=== PATIENT | male | born 1985 | race Caucasian/White ===

== ENCOUNTER 2017-03-08 12:45 | Inpatient (IN) | payer OTHER ==
[2017-03-08 15:55] VITALS: BMI 29.7
--- NOTE | 2017-03-08 20:35 | HP ---
CIWA Score - CIWA Score Nausea/Vomitin (vomiting x 4) Muscle Tremors: 4-Moderate,w/Arms Extend Anxiety: 4-Mod. Anxious/Guarded Agitation: 3 Paroxysmal Sweats: No Perspiration Orientation: 0-Oriented Tacttile Disturbances: 0-None Auditory Disturbances: 0-None Visual Disturbances: 0-None Headache: 3-Moderate CIWA-Ar Total Score: 17 Admission ROS S - HPI Chief Complaint: Alcohol withdrawal symptoms Allergies/Adverse Reactions: Allergies Allergy/AdvReac Type Severity Reaction Status Date / Time No Known Allergies Allergy Verified 03/08/17 17:16 History of Present Illness: 31 years old male with a long history of alcohol dependence is admitted to detox. Patient has been in previous detox and reports 2 months of sobriety. He has medical history of seizure, GERD and depression. Patient has a history of suicide attempt but denies suicidal ideation at this time. Exam Limitations: No Limitations - Ebola screening Have you traveled outside of the country in the last 21 days: No Have you had contact with anyone from an Ebola affected area: No Have you been sick,other than usual withdrawal symptoms: No Do you have a fever: No - Review of Systems Constitutional: Chills, Loss of Appetite, Malaise, Night Sweats, Changes in sleep EENT: reports: Blurred Vision, Nose Congestion, Sinus Pressure Respiratory: reports: No Symptoms reported Cardiac: reports: No Symptoms Reported GI: reports: Diarrhea (x 2), Nausea, Poor Appetite, Poor Fluid Intake, Vomiting (x 4), Abdominal cramping : reports: No Symptoms Reported Musculoskeletal: reports: Back Pain, Muscle Pain, Muscle Weakness Integumentary: reports: Flushing Endocrine: reports: No Symptoms Reported Hematology: reports: No Symptoms Reported Psychiatric: reports: Orientated x3, Agitated, Anxious, Depressed Other Systems: Reviewed and Negative Patient History - Patient Medical History Hx Anemia: No Hx Asthma: No Hx Chronic Obstructive Pulmonary Disease (COPD): No Hx Cancer: No Hx Cardiac Disorders: No Hx Congestive Heart Failure: No Hx Hypertension: No Hx Hypercholesterolemia: No Hx Pacemaker: No HX Cerebrovascular Accident: No Hx Seizures: Yes Hx Dementia: No Hx Diabetes: No Hx Gastrointestinal Disorders: Yes (GERD) Hx Liver Disease: No Hx Genitourinary Disorders: No Hx Sexually Transmitted Disorders: No Hx Renal Disease (ESRD): No Hx Thyroid Disease: No Hx Human Immunodeficiency Virus (HIV): No (Negative 2017) Hx Hepatitis C: No Hx Depression: Yes Hx Suicide Attempt: Yes (overdose,cutting left wrist. Denies suicidal ideation today) Hx Bipolar Disorder: Yes (hospitalized) Hx Schizophrenia: No - Patient Surgical History Past Surgical History: No Hx Neurologic Surgery: No Hx Cataract Extraction: No Hx Cardiac Surgery: No Hx Lung Surgery: No Hx Abdominal Surgery: No Hx Appendectomy: No Hx Cholecystectomy: No Hx Genitourinary Surgery: No Hx Section: No Hx Orthopedic Surgery: No Anesthesia Reaction: No - PPD History Previous Implant?: Yes Implanted On Prior [facility] Admission?: Yes Results: SIGNED OUT AMA PPD to be Administered?: Yes - Reproductive History Patient is a Female of Child Bearing Age (11 -55 yrs old): No (MALE) - Smoking Cessation Smoking history: Current every day smoker Have you smoked in the past 12 months: Yes Aproximately how many cigarettes per day: 20 Cigars Per Day: 0 Hx Chewing Tobacco Use: No Initiated information on smoking cessation: No 'Breaking Loose' booklet given: 03/08/17 - Substances Abused Alcohol Route: Oral Frequency: Daily Amount used: beer- 15- 24oz Age of first use: 23 Date of Last Use: 03/08/17 Family Disease History - Family Disease History Family Disease History: Heart Disease: Mother (Stroke), Other: Mother Admission Physical Exam S - Vital Signs Vital Signs: Vital Signs - 24 hr 03/08/17 15:53 Temperature 98.5 F Pulse Rate 96 H Respiratory 20 Rate Blood Pressure 148/95 - Physical General Appearance: Yes: Moderate Distress, Tremorous, Irritable, Sweating, Anxious HEENTM: Yes: EOMI, Normal Voice, PRUDENCIO Respiratory: Yes: Lungs Clear, Normal Breath Sounds, No Respiratory Distress Neck: Yes: Supple Breast: Yes: Breast Exam Deferred Cardiology: Yes: Regular Rhythm, Regular Rate, S1, S2 Abdominal: Yes: Normal Bowel Sounds, Soft Genitourinary: Yes: Within Normal Limits Back: Yes: Within Normal Limits Musculoskeletal: Yes: Within Normal Limits Extremities: Yes: Tremors Neurological: Yes: Alert, Normal Mood/Affect Integumentary: Yes: Dry, Warm Lymphatic: Yes: Within Normal Limits - Diagnostic (1) Alcohol dependence with uncomplicated withdrawal Current Visit: Yes Status: Chronic (2) Diarrhea Current Visit: Yes Status: Chronic (3) Nicotine dependence Current Visit: Yes Status: Chronic (4) Seizure Current Visit: Yes Status: Chronic Cleared for Admission [facility] - Detox or Rehab [facility] Level of Care: Medically Managed Detox Regimen/Protocol: Librium [facility] Breath Alcohol Content Breath Alcohol Content: 0.087 Urine Drug Screen - Results Drug Screen Negative: Yes
[2017-03-08] MEDS ORDERED: guaiFENesin/D-METHORPHAN HB 10 ML UNIT-DOSE CUPS PO PRN (20:46)
[2017-03-08] MEDS ORDERED: ACETAMINOPHEN 325 MG TABLET (FP) PO PRN (20:46)
[2017-03-08] MEDS ORDERED: LOPERAMIDE HCL 2 MG CAPSULE PO PRN (20:46)
[2017-03-08] MEDS ORDERED: chlordiazePOXIDE HCL 25 MG CAPSULE PO PRN (20:46)
[2017-03-08] MEDS ORDERED: MENTHOL/PHENOL 1 EACH UD MM PRN (20:46)
[2017-03-08] MEDS ORDERED: P-EPHED 60MG/TRIPROLIDI 2.5MG TABLET PO PRN (20:46)
[2017-03-08] MEDS ORDERED: MAGNESIUM CITRATE 300 ML BOTTLE PO PRN (20:46)
[2017-03-08] MEDS ORDERED: MAG HYDROX/AL HYDROX/SIMETH 30 ML UNIT-DOSE CUP PO PRN (20:46)
[2017-03-08] MEDS ORDERED: IBUPROFEN 400 MG TABLET (FP) PO PRN (20:46)
[2017-03-08] MEDS ORDERED: MAGNESIUM HYDROX 2400MG/30ML ORAL SUSPENSION 30 ML CUP PO PRN (20:46)
[2017-03-08] MEDS: THIAMINE HCL 100 MG TABLET (FP) PO SCH (21:42)
[2017-03-08] MEDS: chlordiazePOXIDE HCL 25 MG CAPSULE PO SCH (22:00)
[2017-03-08] MEDS: NICOTINE POLACRILEX 2 MG GUM BC PRN (22:48)
[2017-03-09 00:02] LABS: URINE APPEARANCE CLEAR; URINE BILIRUBIN NEGATIVE (NEGATIVE); URINE BLOOD NEGATIVE (NEGATIVE); URINE COLOR LTYELLOW; URINE GLUCOSE (UA) NEGATIVE (NEGATIVE); URINE KETONE NEGATIVE (NEGATIVE); URINE LEUK ESTERASE NEGATIVE (NEGATIVE); URINE NITRITE NEGATIVE (NEGATIVE); URINE PROTEIN NEGATIVE (NEGATIVE); URINE UROBILINOGEN NEGATIVE mg/dL (0.2-1.0)
[2017-03-09] MEDS ORDERED: hydrOXYzine PAMOATE 50 MG CAPSULE (FP) PO ONE (00:11)
[2017-03-09] MEDS: chlordiazePOXIDE HCL 25 MG CAPSULE PO SCH ×4 (05:48→22:14)
--- NOTE | 2017-03-09 10:06 | EKG ---
Test Reason : Blood Pressure : / mmHG Vent. Rate : 098 BPM Atrial Rate : 098 BPM P-R Int : 150 ms QRS Dur : 090 ms QT Int : 370 ms P-R-T Axes : 063 069 064 degrees QTc Int : 472 ms NORMAL SINUS RHYTHM NONSPECIFIC ST ABNORMALITY ABNORMAL ECG WHEN COMPARED WITH ECG OF 08-MAR-2017 21:53, NO SIGNIFICANT CHANGE WAS FOUND Confirmed by ANUJ SANZ MD ([id number]) on 03/09/2017 10:06:27 AM Referred By: Confirmed By:ANUJ SANZ MD
[2017-03-09] MEDS: NICOTINE 14 MG/24 HOURS TOPICAL PATCH TD SCH (10:18)
[2017-03-09] MEDS: PRENATAL VITAMINS W/ FOLIC ACID TABLET (FP) PO SCH (10:18)
[2017-03-09] MEDS: NICOTINE POLACRILEX 2 MG GUM BC PRN ×2 (10:21→17:58)
--- NOTE | 2017-03-09 10:23 | EKG ---
Test Reason : Blood Pressure : / mmHG Vent. Rate : 066 BPM Atrial Rate : 066 BPM P-R Int : 174 ms QRS Dur : 096 ms QT Int : 440 ms P-R-T Axes : 058 056 056 degrees QTc Int : 461 ms SINUS RHYTHM WITH OCCASIONAL PREMATURE VENTRICULAR COMPLEXES OTHERWISE NORMAL ECG WHEN COMPARED WITH ECG OF 08-MAR-2017 21:54, PREMATURE VENTRICULAR COMPLEXES ARE NOW PRESENT VENT. RATE HAS DECREASED BY 32 BPM Confirmed by UMU GRIJALVA, ANUJ ([id number]) on 03/09/2017 10:23:14 AM Referred By: Confirmed By:ANUJ SANZ MD
--- NOTE | 2017-03-09 13:16 | PN ---
[facility] CIWA - CIWA Score Nausea/Vomitin-No Nausea/No Vomiting Muscle Tremors: 4-Moderate,w/Arms Extend Anxiety: 4-Mod. Anxious/Guarded Agitation: 2 Paroxysmal Sweats: 3 Orientation: 0-Oriented Tacttile Disturbances: 2-Mild Itch/Numbness/Burn Auditory Disturbances: 2-Mild Harshness/Frighten Visual Disturbances: 0-None Headache: 0-None Present CIWA-Ar Total Score: 17 BHS Progress Note (SOAP) Subjective: Tremors, Anxious, Sweating, Diarrhea, Interrupted Sleep. Objective: PT. A & O X 3, OBSERVED AMBULATING ON UNIT. NO ACUTE DISTRESS. 03/09/17 13:17 Vital Signs Temperature 96.9 F L 03/09/17 12:59 Pulse Rate 79 03/09/17 12:59 Respiratory Rate 19 03/09/17 12:59 Blood Pressure 143/88 03/09/17 12:59 O2 Sat by Pulse Oximetry (%) Laboratory Tests 03/08/17 22:00 Urine Color Ltyellow Urine Appearance Clear Urine pH 6.0 Ur Specific [place] 1.004 Urine Protein Negative Urine Glucose (UA) Negative Urine Ketones Negative Urine Blood Negative Urine Nitrite Negative Urine Bilirubin Negative Urine Urobilinogen Negative Ur Leukocyte Esterase Negative UA RESULTS NOTED. CBC, CMP, RPR RESULTS NOT YET OBTAINED. 03/09/17 13:19 Assessment: 03/09/17 13:19 WITHDRAWAL SYMPTOMS. Plan: CONTINUE DETOX. INCREASE DAILY PO FLUID INTAKE.
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
[2017-03-09] MEDS: hydrOXYzine PAMOATE 25 MG CAPSULE (FP) PO PRN (17:58)
[2017-03-09] MEDS: THIAMINE HCL 100 MG TABLET (FP) PO SCH (22:13)
[2017-03-09] MEDS: ZOLPIDEM TARTRATE 10 MG TABLET (PARK CARE ONLY) PO PRN (22:14)
[2017-03-10] MEDS: chlordiazePOXIDE HCL 25 MG CAPSULE PO SCH ×3 (05:19→17:30)
[2017-03-10] MEDS: hydrOXYzine PAMOATE 25 MG CAPSULE (FP) PO PRN ×3 (05:20→18:52)
[2017-03-10 10:07] LABS: BASO % 0.8 % (0-2.0); HEMATOCRIT 43.5 % (35.4-49); LYMPH % 42.1 % (8-40); MCH 30.4 pg (25.7-33.7); MCHC 32.2 g/dl (32.0-35.9); MEAN CELL VOLUME 94.6 fl (80-96); MEAN PLT VOLUME 8.3 fl (7.5-11.1); MONO % 8.6 % (3.8-10.2); NEUT % 45.5 % (42.8-82.8); PLATELET COUNT 175 K/MM3 (134-434); RDW 13.8 % (11.9-15.9); WHITE BLOOD COUNT 5.4 K/mm3 (4.0-10.0)
[2017-03-10 10:09] LABS: ALBUMIN 3.2 g/dl (3.4-5.0); ALK PHOS 110 U/L (45-117); ANION GAP 6 (8-16); BILIRUBIN,TOTAL 0.4 mg/dL (0.2-1.0); BLOOD UREA NITROGEN 16 mg/dL (7-18); CALCIUM 8.3 mg/dL (8.5-10.1); CHLORIDE 105 mmol/L (98-107); CO2 31 mmol/L (21-32); CREATININE 0.8 mg/dL (0.7-1.3); GLUCOSE,RANDOM 92 mg/dL (74-106); POTASSIUM 4.5 mmol/L (3.5-5.1); SGOT/AST 57 U/L (15-37); SGPT/ALT 84 U/L (12-78); SODIUM 142 mmol/L (136-145); TOT PROT 6.5 g/dl (6.4-8.2)
[2017-03-10] MEDS: PRENATAL VITAMINS W/ FOLIC ACID TABLET (FP) PO SCH (10:42)
[2017-03-10] MEDS: NICOTINE 14 MG/24 HOURS TOPICAL PATCH TD SCH (10:42)
[2017-03-10] MEDS: NICOTINE POLACRILEX 2 MG GUM BC PRN ×3 (11:19→21:53)
--- NOTE | 2017-03-10 13:17 | PN ---
[facility] CIWA - CIWA Score Nausea/Vomitin-No Nausea/No Vomiting Muscle Tremors: 2 Anxiety: 4-Mod. Anxious/Guarded Agitation: 3 Paroxysmal Sweats: 3 Orientation: 0-Oriented Tacttile Disturbances: 2-Mild Itch/Numbness/Burn Auditory Disturbances: 0-None Visual Disturbances: 2-Mild Sensitivity Headache: 0-None Present CIWA-Ar Total Score: 16 S Progress Note (SOAP) Subjective: Anxious, Sweating, Stomach Cramping, Interrupted Sleep. Objective: PT. A & O X 3, OBSERVED AMBULATING ON UNIT. NO ACUTE DISTRESS. 03/10/17 13:15 Vital Signs Temperature 96.4 F L 03/10/17 10:17 Pulse Rate 98 H 03/10/17 10:17 Respiratory Rate 18 03/10/17 10:17 Blood Pressure 145/98 03/10/17 10:17 O2 Sat by Pulse Oximetry (%) Laboratory Tests 03/08/17 03/10/17 03/10/17 22:00 07:00 07:00 WBC 5.4 RBC 4.60 Hgb 14.0 Hct 43.5 MCV 94.6 MCH 30.4 MCHC 32.2 RDW 13.8 Plt Count 175 MPV 8.3 Neutrophils % 45.5 D Lymphocytes % 42.1 H D Monocytes % 8.6 Eosinophils % 3.0 D Basophils % 0.8 Sodium Potassium Chloride Carbon Dioxide Anion Gap BUN Creatinine Creat Clearance w eGFR Random Glucose Calcium Total Bilirubin AST ALT Alkaline Phosphatase Total Protein Albumin Urine Color Ltyellow Urine Appearance Clear Urine pH 6.0 Ur Specific [place] 1.004 Urine Protein Negative Urine Glucose (UA) Negative Urine Ketones Negative Urine Blood Negative Urine Nitrite Negative Urine Bilirubin Negative Urine Urobilinogen Negative Ur Leukocyte Esterase Negative RPR Titer HIV 1&2 Antibody Screen Negative HIV P24 Antigen Negative 03/10/17 03/10/17 07:00 07:00 WBC RBC Hgb Hct MCV MCH MCHC RDW Plt Count MPV Neutrophils % Lymphocytes % Monocytes % Eosinophils % Basophils % Sodium 142 Potassium 4.5 Chloride 105 Carbon Dioxide 31 Anion Gap 6 L BUN 16 D Creatinine 0.8 Creat Clearance w eGFR > 60 Random Glucose 92 Calcium 8.3 L Total Bilirubin 0.4 D AST 57 H D ALT 84 H D Alkaline Phosphatase 110 Total Protein 6.5 Albumin 3.2 L Urine Color Urine Appearance Urine pH Ur Specific [place] Urine Protein Urine Glucose (UA) Urine Ketones Urine Blood Urine Nitrite Urine Bilirubin Urine Urobilinogen Ur Leukocyte Esterase RPR Titer Nonreactive HIV 1&2 Antibody Screen HIV P24 Antigen LABS NOTED. HCV AB RESULT PENDING. 03/10/17 13:16 Assessment: 03/10/17 13:15 WITHDRAWAL SYMPTOMS. Plan: CONTINUE DETOX.
[2017-03-10] MEDS: ZOLPIDEM TARTRATE 10 MG TABLET (PARK CARE ONLY) PO PRN (21:52)
[2017-03-10] MEDS: THIAMINE HCL 100 MG TABLET (FP) PO SCH (21:53)
[2017-03-10] MEDS: chlordiazePOXIDE 5 MG CAPSULE PO SCH (22:59)
[2017-03-11] MEDS: chlordiazePOXIDE 5 MG CAPSULE PO SCH (06:02)
[2017-03-11] MEDS: hydrOXYzine PAMOATE 25 MG CAPSULE (FP) PO PRN (06:04)
[2017-03-11] MEDS: NICOTINE POLACRILEX 2 MG GUM BC PRN (07:19)
[2017-03-11 09:44] VITALS: BP 133/88; PULSE 76; TEMP 96.4
--- NOTE | 2017-03-11 11:50 | DS ---
[facility] Detox Discharge Summary Admission Date: 03/08/17 Discharge Date: 03/11/17 - History Present History: Alcohol Dependence Additional Comments: PATIENT DOES NOT WISH TO STAY TO COMPLETE DETOX REGIMEN. RISKS OF LEAVING DETOX UNIT PRIOR TO COMPLETION OF DETOX REGIMEN EXPLAINED TO PATIENT. PATIENT ADVISED TO GO IMMEDIATELY TO NEAREST ER SHOULD ANY INTOLERABLE DETOX SYMPTOMS DEVELOP AT ANY TIME. PATIENT LEFT DETOX UNIT IN STABLE MEDICAL CONDITION. Pertinent Past History: History of Seizures, Depression, Diarrhea, Bipolar Disorder. - Physical Exam Results Vital Signs: Vital Signs Temperature 96.4 F L 03/11/17 09:44 Pulse Rate 76 03/11/17 09:44 Respiratory Rate 20 03/11/17 09:44 Blood Pressure 133/88 03/11/17 09:44 O2 Sat by Pulse Oximetry (%) Pertinent Admission Physical Exam Findings: WITHDRAWAL SYMPTOMS. Laboratory Tests 03/08/17 03/10/17 03/10/17 22:00 07:00 07:00 WBC RBC Hgb Hct MCV MCH MCHC RDW Plt Count MPV Neutrophils % Lymphocytes % Monocytes % Eosinophils % Basophils % Sodium Potassium Chloride Carbon Dioxide Anion Gap BUN Creatinine Creat Clearance w eGFR Random Glucose Calcium Total Bilirubin AST ALT Alkaline Phosphatase Total Protein Albumin Urine Color Ltyellow Urine Appearance Clear Urine pH 6.0 Ur Specific [place] 1.004 Urine Protein Negative Urine Glucose (UA) Negative Urine Ketones Negative Urine Blood Negative Urine Nitrite Negative Urine Bilirubin Negative Urine Urobilinogen Negative Ur Leukocyte Esterase Negative RPR Titer Hepatitis C Antibody <0.1 HIV 1&2 Antibody Screen Negative HIV P24 Antigen Negative 03/10/17 03/10/17 03/10/17 07:00 07:00 07:00 WBC 5.4 RBC 4.60 Hgb 14.0 Hct 43.5 MCV 94.6 MCH 30.4 MCHC 32.2 RDW 13.8 Plt Count 175 MPV 8.3 Neutrophils % 45.5 D Lymphocytes % 42.1 H D Monocytes % 8.6 Eosinophils % 3.0 D Basophils % 0.8 Sodium 142 Potassium 4.5 Chloride 105 Carbon Dioxide 31 Anion Gap 6 L BUN 16 D Creatinine 0.8 Creat Clearance w eGFR > 60 Random Glucose 92 Calcium 8.3 L Total Bilirubin 0.4 D AST 57 H D ALT 84 H D Alkaline Phosphatase 110 Total Protein 6.5 Albumin 3.2 L Urine Color Urine Appearance Urine pH Ur Specific [place] Urine Protein Urine Glucose (UA) Urine Ketones Urine Blood Urine Nitrite Urine Bilirubin Urine Urobilinogen Ur Leukocyte Esterase RPR Titer Nonreactive Hepatitis C Antibody HIV 1&2 Antibody Screen HIV P24 Antigen LABS NOTED. - Treatment Hospital Course: Detoxed Safely - Medication Discharge Medications: Ambulatory Orders Trazodone HCl 100 mg PO HS #30 tablet 01/22/17 - Diagnosis (1) Alcohol dependence with uncomplicated withdrawal Status: Acute (2) Diarrhea Status: Chronic Qualifiers: Diarrhea type: unspecified type Qualified Code(s): R19.7 - Diarrhea, unspecified (3) Nicotine dependence Status: Acute Qualifiers: Nicotine product type: cigarettes Substance use status: uncomplicated Qualified Code(s): F17.210 - Nicotine dependence, cigarettes, uncomplicated (4) Seizure Status: Chronic - AMA Did Patient Leave Against Medical Advice: Yes (PATIENT DID NOT WISH TO STAY TO COMPLETE DETOX REGIMEN.)
[2017-03-11] MEDS ORDERED: chlordiazePOXIDE HCL 10 MG CAPSULE PO SCH (23:00)
== END 2017-03-11 10:49 | disposition left against medical advice (07) | DRG 770 ==
LOC: YASAS 12:45 → Y3N 17:58
PROVIDERS: ADMIT Internal Medicine; ATTEND Internal Medicine
PROC: HZ2ZZZZ Detoxification Services for Substance Abuse Treatment (ICD-10-PCS; principal; 2017-03-08)
DX: F10.230 Alcohol dependence with withdrawal, uncomplicated (principal); F17.210 Nicotine dependence, cigarettes, uncomplicated; F31.9 Bipolar disorder, unspecified; F19.24 Other psychoactive substance dependence with psychoactive substance-induced mood disorder; G47.00 Insomnia, unspecified; K21.9 Gastro-esophageal reflux disease without esophagitis; R19.7 Diarrhea, unspecified; Z91.5 Personal history of self-harm
CPT/HCPCS: 36415; 80053; 81003; 85025; 86593; 86803; 87389; 93005; 93010

== ENCOUNTER 2018-01-31 04:23 | Emergency (ER) | payer OTHER ==
[2018-01-31 04:40] VITALS: BMI 27.3
--- NOTE | 2018-01-31 04:59 | PDOC ---
History of Present Illness - General Chief Complaint: Substance Abuse Stated Complaint: SUBSTANCE ABUSE Time Seen by Provider: 01/31/18 04:59 History Source: Patient - History of Present Illness Initial Comments: 01/31/18 05:22 32 year old male male bib friends as per friend patient was vomiting and turning blue after snorting cocaine and heroin. patient is now awake with intermittent somonolence. patient reports he is an alcoholic and doesn't often do heroin or cocaine. friend denies head injury . normocephalic. denies abdominal pain, fever/ chills. patient denies IVDA 01/31/18 06:18 Past History - Past Medical History Allergies/Adverse Reactions: Allergies Allergy/AdvReac Type Severity Reaction Status Date / Time No Known Allergies Allergy Verified 01/31/18 04:40 Home Medications: Ambulatory Orders NK [No Known Home Medication] 12/22/17 Anemia: No Asthma: No Cancer: No Cardiac Disorders: No CVA: No COPD: No CHF: No Dementia: No Diabetes: No GI Disorders: No Disorders: No HTN: No Hypercholesterolemia: No Kidney Stones: No Liver Disease: No Psychiatric Problems: Yes (BIPOLAR,DEPRESSION) Seizures: No Thyroid Disease: No - Surgical History Abdominal Surgery: No Appendectomy: No Cardiac Surgery: No Cholecystectomy: No Lung Surgery: No Neurologic Surgery: No Orthopedic Surgery: No - Reproductive History Testicular Surgery: No - Suicide/Smoking/Psychosocial Hx Smoking History: Current every day smoker Have you smoked in the past 12 months: Yes Number of Cigarettes Smoked Daily: 20 Cigars Per Day: 0 Information on smoking cessation initiated: No 'Breaking Loose' booklet given: 03/08/17 Hx Alcohol Use: Yes Drug/Substance Use Hx: Yes (Cocaine, heroin) Substance Use Type: Alcohol, Cocaine, Heroin, Marijuana, Opiates Hx Substance Use Treatment: Yes Review of Systems - Review of Systems Able to Perform ROS?: Yes Is the patient limited Russian proficient: No ABD/GI: Yes: Nausea, Vomiting *Physical Exam - Vital Signs Last Vital Signs Temp Pulse Resp BP Pulse Ox 98.1 F 110 H 19 140/96 92 L 01/31/18 04:23 01/31/18 04:23 01/31/18 04:23 01/31/18 04:23 01/31/18 04:23 - Physical Exam General Appearance: Yes: Appropriately Dressed HEENT: positive: Other (pupils pinpoint b/l) Respiratory/Chest: positive: Lungs Clear, Normal Breath Sounds Cardiovascular: positive: Regular Rate, Tachycardia Gastrointestinal/Abdominal: positive: Normal Bowel Sounds, Soft Neurologic: positive: Alert, Depressed Affect Moderate Sedation - Procedure Monitoring Vital Signs: Procedure Monitoring Vital Signs Temperature 98.1 F 01/31/18 04:23 Pulse Rate 110 H 01/31/18 04:23 Respiratory Rate 19 01/31/18 04:23 Blood Pressure 140/96 01/31/18 04:23 O2 Sat by Pulse Oximetry (%) 92 L 01/31/18 04:23 ED Treatment Course - LABORATORY CBC & Chemistry Diagram: 01/31/18 05:15 01/31/18 05:15 Medical Decision Making - Medical Decision Making 01/31/18 06:26 A; polysubstance abuse/ overdose. aspiration? P: labs chest xray 01/31/18 07:04 patient alert awake. IV removed. patient no slurred speech. patient walked out of the ER *DC/Admit/Observation/Transfer Diagnosis at time of Disposition: Polysubstance (including opioids) dependence with physiological dependence - Discharge Dispostion Condition at time of disposition: Fair - Referrals Referrals: Cullen Li MD [Primary Care Provider] - - Patient Instructions - Post Discharge Activity
[2018-01-31] MEDS ORDERED: SODIUM CHLORIDE 1,000 ML IV STA (05:00)
[2018-01-31 05:24] LABS: BASO % 0.3 % (0-2.0); HEMATOCRIT 42.9 % (35.4-49); HEMOGLOBIN 14.1 GM/dL (11.7-16.9); LYMPH % 5.2 % (8-40); MCHC 32.9 g/dl (32.0-35.9); MEAN CELL VOLUME 94.3 fl (80-96); MEAN PLT VOLUME 7.5 fl (7.5-11.1); MONO % 4.9 % (3.8-10.2); NEUT % 89.6 % (42.8-82.8); PLATELET COUNT 168 K/MM3 (134-434); RBC 4.54 M/mm3 (4.00-5.60); RDW 15.1 % (11.9-15.9); WHITE BLOOD COUNT 12.9 K/mm3 (4.0-10.0)
[2018-01-31 05:37] LABS: INR 0.93 (0.83-1.09)
[2018-01-31 05:52] LABS: ALBUMIN 4.3 g/dl (3.4-5.0); ALK PHOS 79 U/L (45-117); ANION GAP 7 MMOL/L (8-16); BILIRUBIN,TOTAL 0.2 mg/dL (0.2-1); BLOOD UREA NITROGEN 15 mg/dL (7-18); CALCIUM 8.6 mg/dL (8.5-10.1); CHLORIDE 104 mmol/L (98-107); CO2 28 mmol/L (21-32); CREATININE 0.9 mg/dL (0.55-1.3); GLUCOSE,RANDOM 157 mg/dL (74-106); POTASSIUM 4.6 mmol/L (3.5-5.1); SGOT/AST 54 U/L (15-37); SGPT/ALT 103 U/L (13-61); SODIUM 139 mmol/L (136-145); TOT PROT 8.1 g/dl (6.4-8.2)
[2018-01-31 07:22] VITALS: BP 129/77; PULSE 72; TEMP 99.2
--- NOTE | 2018-01-31 16:25 | EKG ---
Test Reason : Blood Pressure : / mmHG Vent. Rate : 090 BPM Atrial Rate : 090 BPM P-R Int : 158 ms QRS Dur : 098 ms QT Int : 374 ms P-R-T Axes : 054 022 048 degrees QTc Int : 457 ms NORMAL SINUS RHYTHM CANNOT RULE OUT ANTERIOR INFARCT , AGE UNDETERMINED ABNORMAL ECG Confirmed by MD TONY, MARY ([id number]) on 01/31/2018 4:24:56 PM Referred By: Confirmed By:MARY JIMENEZ MD
== END 2018-01-31 07:20 | disposition left against medical advice (07) ==
LOC: JER 04:23
PROC: 3E0337Z Introduction of Electrolytic and Water Balance Substance into Peripheral Vein, Percutaneous Approach (ICD-10-PCS; principal; 2018-01-31)
DX: F11.20 Opioid dependence, uncomplicated (principal); F17.210 Nicotine dependence, cigarettes, uncomplicated; F31.9 Bipolar disorder, unspecified
CPT/HCPCS: 36415; 71045-TC-FY; 80053; 80307; 84484; 85025; 85610; 93005; 93010; 99282-25; J7030

== ENCOUNTER 2018-03-30 09:44 | Inpatient (IN) | payer OTHER ==
[2018-03-30 10:35] VITALS: BMI 30.2
--- NOTE | 2018-03-30 11:10 | HP ---
CIWA Score Nausea/Vomitin Muscle Tremors: 3 Anxiety: 2 Agitation: 2 Paroxysmal Sweats: 1-Minimal Palms Moist Orientation: 0-Oriented Tacttile Disturbances: 1-Very Mild Itch/Numbness Auditory Disturbances: 1-Very Mild Visual Disturbances: 0-None Headache: 2-Mild CIWA-Ar Total Score: 15 - Admission Criteria OASAS Guidelines: Admission for Medically Managed Detox: Requires at least one of the followin. CIWA greater than 12 2. Seizures within the past 24 hours 3. Delirium tremens within the past 24 hours 4. Hallucinations within the past 24 hours 5. Acute intervention needed for co occurring medical disorder 6. Acute intervention needed for co occurring psychiatric disorder 7. Severe withdrawal that cannot be handled at a lower level of care (continued vomiting, continued diarrhea, abnormal vital signs) requiring intravenous medication and/or fluids 8. Patient presents the following: CIWA greater than 12 Admission Criteria Met: Admission criteria met Admission ROS [facility] - HPI Chief Complaint: i need help to stop drinking alcohol and marijuana Allergies/Adverse Reactions: Allergies Allergy/AdvReac Type Severity Reaction Status Date / Time No Known Allergies Allergy Verified 03/30/18 10:44 History of Present Illness: this 32 years old male with alcoho and marijuana dependence,seeking detox, withdrawal symptom,[facility] not completed multiple admissions in detox but keep relapsing seizure last 01/31 syncope nicotine dependence bipolar disorder n medication longest period of sobriety 2 months - Ebola screening Have you traveled outside of the country in the last 21 days: No Have you had contact with anyone from an Ebola affected area: No Have you been sick,other than usual withdrawal symptoms: No Do you have a fever: No - Review of Systems Constitutional: Loss of Appetite, Malaise, Night Sweats, Changes in sleep, Weakness EENT: reports: Tearing, Nose Congestion Respiratory: reports: No Symptoms reported Cardiac: reports: Palpitations GI: reports: Nausea, Vomiting, Abdominal cramping : reports: No Symptoms Reported Musculoskeletal: reports: Back Pain, Muscle Pain Integumentary: reports: Dryness Neuro: reports: Headache, Tremors Endocrine: reports: No Symptoms Reported Hematology: reports: No Symptoms Reported Psychiatric: reports: No Sypmtoms Reported, Judgement Intact, Mood/Affect Appropiate, Orientated x3 Other Systems: Reviewed and Negative Patient History - Patient Medical History Hx Anemia: No Hx Asthma: No Hx Chronic Obstructive Pulmonary Disease (COPD): No Hx Cancer: No Hx Cardiac Disorders: No Hx Congestive Heart Failure: No Hx Hypertension: No Hx Hypercholesterolemia: No Hx Pacemaker: No HX Cerebrovascular Accident: No Hx Seizures: Yes (alcohol related-last episode was in 01/2018) Hx Dementia: No Hx Diabetes: No Hx Gastrointestinal Disorders: No Hx Liver Disease: No Hx Genitourinary Disorders: No Hx Sexually Transmitted Disorders: No Hx Renal Disease (ESRD): No Hx Thyroid Disease: No Hx Human Immunodeficiency Virus (HIV): No (Negative 2015) Hx Hepatitis C: No Hx Depression: Yes Hx Suicide Attempt: No Hx Bipolar Disorder: Yes (hospitalized at age 25) Hx Schizophrenia: No Other Medical History: no suicidal,no homicidal - Patient Surgical History Past Surgical History: Yes Hx Neurologic Surgery: No Hx Cataract Extraction: No Hx Cardiac Surgery: No Hx Lung Surgery: No Hx Breast Surgery: No Hx Breast Biopsy: No Hx Abdominal Surgery: No Hx Appendectomy: No Hx Cholecystectomy: No Hx Genitourinary Surgery: No Hx Section: No Hx Orthopedic Surgery: Yes (right foot in 2010 compartment ) Anesthesia Reaction: No - PPD History Previous Implant?: Yes Implanted On Prior [facility] Admission?: Yes Date: 03/10/17 Results: 0 mm PPD to be Administered?: Yes - Smoking Cessation Smoking history: Current every day smoker Have you smoked in the past 12 months: Yes Aproximately how many cigarettes per day: 20 Cigars Per Day: 0 Hx Chewing Tobacco Use: No Initiated information on smoking cessation: Yes 'Breaking Loose' booklet given: 03/30/18 - Substance & Tx. History Hx Alcohol Use: Yes Hx Substance Use: Yes Substance Use Type: Alcohol Hx Substance Use Treatment: Yes ([facility] 01/31 not completed) - Substances Abused Alcohol-beer Route: Oral Frequency: Daily Amount used: 3-6 pks.of 24 ozs Age of first use: 24 Date of Last Use: 03/30/18 Marijuana/Hashish Route: Smoking Frequency: 1-3 times last 30 days Amount used: 10$ Age of first use: 22 Date of Last Use: 03/17/18 Family Disease History - Family Disease History Family Disease History: Heart Disease: Mother (Stroke), Other: Mother Admission Physical Exam BHS - Vital Signs Vital Signs: Vital Signs - 24 hr 03/30/18 10:19 Temperature 98.9 F Pulse Rate 125 H Respiratory 20 Rate Blood Pressure 161/113 H - Physical General Appearance: Yes: Moderate Distress, Tremorous, Irritable, Sweating, Anxious HEENTM: Yes: Normal ENT Inspection, PRUDENCIO, Pharynx Normal Respiratory: Yes: Lungs Clear, Normal Breath Sounds, No Respiratory Distress Neck: Yes: Within Normal Limits, Supple, Trachea in good position Breast: Yes: Within Normal Limits Cardiology: Yes: Within Normal Limits, Regular Rhythm, S1, S2, Tachycardia Abdominal: Yes: Within Normal Limits, Normal Bowel Sounds, Non Tender, Flat, Soft Genitourinary: Yes: Within Normal Limits Back: Yes: Muscle Spasm Musculoskeletal: Yes: full range of Motion, Back pain, Muscle Pain Extremities: Yes: Normal Range of Motion, Tremors Neurological: Yes: sterile tech II-XII NML intact, Fully Oriented, Alert, Motor Strength 5/5 Integumentary: Yes: Dry Lymphatic: Yes: Within Normal Limits - Diagnostic (1) Alcohol dependence with uncomplicated withdrawal Current Visit: No Status: Acute (2) Dehydration Current Visit: No Status: Acute (3) Nicotine dependence Current Visit: Yes Status: Acute Qualifiers: Nicotine product type: cigarettes Substance use status: uncomplicated Qualified Code(s): F17.210 - Nicotine dependence, cigarettes, uncomplicated (4) Syncope Current Visit: No Status: Acute (5) Bipolar disorder Current Visit: No Status: Chronic Comment: Self-report.Non-adherent to medications.Currently asymptomatic.Lost to follow-up since 2013. (6) Seizure Current Visit: No Status: Chronic (7) Alcohol dependence with uncomplicated intoxication Current Visit: Yes Status: Acute (8) Bipolar disorder Current Visit: No Status: Suspected Comment: Self reports. (9) Insomnia Current Visit: No Status: Acute Cleared for Admission S - Detox or Rehab [facility] Level of Care: Medically Managed Detox Regimen/Protocol: Librium [facility] Breath Alcohol Content Breath Alcohol Content: 0.137 Urine Drug Screen - Results Drug Screen Negative: Yes Inpatient Rehab Admission - Rehab Decision to Admit Inpatient rehab admission?: No
[2018-03-30] MEDS ORDERED: guaiFENesin/D-METHORPHAN HB 10 ML UNIT-DOSE CUPS PO PRN (11:22)
[2018-03-30] MEDS ORDERED: MENTHOL/PHENOL 1 EACH UD MM PRN (11:22)
[2018-03-30] MEDS ORDERED: P-EPHED 60MG/TRIPROLIDI 2.5MG TABLET PO PRN (11:22)
[2018-03-30] MEDS ORDERED: hydrOXYzine PAMOATE 50 MG CAPSULE (FP) PO PRN (11:22)
[2018-03-30] MEDS ORDERED: LOPERAMIDE HCL 2 MG CAPSULE PO PRN (11:22)
[2018-03-30] MEDS ORDERED: NICOTINE POLACRILEX 2 MG GUM BUC PRN (11:22)
[2018-03-30] MEDS ORDERED: MAG HYDROX/AL HYDROX/SIMETH 30 ML UNIT-DOSE CUP PO PRN (11:22)
[2018-03-30] MEDS ORDERED: MAGNESIUM HYDROX 2400MG/30ML ORAL SUSPENSION 30 ML CUP PO PRN (11:22)
[2018-03-30] MEDS ORDERED: ACETAMINOPHEN 325 MG TABLET (FP) PO PRN (11:22)
[2018-03-30] MEDS ORDERED: chlordiazePOXIDE HCL 25 MG CAPSULE PO PRN (11:22)
[2018-03-30] MEDS ORDERED: MAGNESIUM CITRATE 300 ML BOTTLE PO PRN (11:22)
[2018-03-30] MEDS ORDERED: cloNIDine HCL 0.1 MG TABLET PO ONE (12:00)
[2018-03-30] MEDS: NICOTINE 21 MG/24 HOURS TOPICAL PATCH TD SCH (13:12)
--- NOTE | 2018-03-30 15:46 | EKG ---
Test Reason : Blood Pressure : / mmHG Vent. Rate : 105 BPM Atrial Rate : 105 BPM P-R Int : 152 ms QRS Dur : 100 ms QT Int : 348 ms P-R-T Axes : 063 060 060 degrees QTc Int : 459 ms SINUS TACHYCARDIA WITH OCCASIONAL PREMATURE VENTRICULAR COMPLEXES AND FUSION COMPLEXES OTHERWISE NORMAL ECG WHEN COMPARED WITH ECG OF 31-JAN-2018 06:52, FUSION COMPLEXES ARE NOW PRESENT PREMATURE VENTRICULAR COMPLEXES ARE NOW PRESENT Confirmed by ALEXANDRE GRIJALVA, TERRIE ([id number]) on 03/30/2018 3:46:08 PM Referred By: Confirmed By:TERRIE SCHROEDER MD
--- NOTE | 2018-03-30 15:48 | PN ---
B[facility] Progress Note Note: nausea zofran 4 mg sl x 1
[2018-03-30] MEDS ORDERED: ONDANSETRON *ODT* 4 MG TABLET SL ONE (16:15)
[2018-03-30 17:23] LABS: URINE APPEARANCE CLEAR; URINE BILIRUBIN NEGATIVE (<2.0 mg/dL); URINE COLOR YELLOW; URINE GLUCOSE (UA) NEGATIVE (NEGATIVE); URINE KETONE NEGATIVE (NEGATIVE); URINE LEUK ESTERASE NEGATIVE (NEGATIVE); URINE NITRITE NEGATIVE (NEGATIVE); URINE PROTEIN 2+ (NEGATIVE); URINE UROBILINOGEN NEGATIVE mg/dL (0.2-1.0)
[2018-03-30] MEDS: chlordiazePOXIDE HCL 25 MG CAPSULE PO SCH ×2 (17:29→22:12)
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
[2018-03-30 18:05] LABS: EPI CELLS RARE /HPF (FEW); URINE HYALINE CAST 8 /lpf; URINE MUCUS RARE
[2018-03-30] MEDS: IBUPROFEN 400 MG TABLET (FP) PO PRN (20:42)
[2018-03-30] MEDS ORDERED: MELATONIN 5 MG TABLETS PO PRN (22:00)
[2018-03-30] MEDS ORDERED: THIAMINE HCL 100 MG TABLET (FP) PO SCH (22:00)
[2018-03-30] MEDS ORDERED: SUVOREXANT 10 MG TABLET PO PRN (22:00)
[2018-03-31] MEDS: chlordiazePOXIDE HCL 25 MG CAPSULE PO SCH ×2 (05:42→10:19)
[2018-03-31] MEDS: IBUPROFEN 400 MG TABLET (FP) PO PRN (05:42)
[2018-03-31] MEDS ORDERED: PRENATAL VITAMINS W/ FOLIC ACID TABLET (FP) PO SCH (10:00)
[2018-03-31] MEDS: NICOTINE 21 MG/24 HOURS TOPICAL PATCH TD SCH (10:19)
[2018-03-31 11:23] LABS: HEMATOCRIT 45.2 % (35.4-49); HEMOGLOBIN 15.4 GM/dL (11.7-16.9); MCH 32.3 pg (25.7-33.7); MCHC 34.1 g/dl (32.0-35.9); MEAN CELL VOLUME 94.9 fl (80-96); MEAN PLT VOLUME 8.5 fl (7.5-11.1); PLATELET COUNT 205 K/MM3 (134-434); RBC 4.77 M/mm3 (4.00-5.60); RDW 14.5 % (11.9-15.9); WHITE BLOOD COUNT 4.7 K/mm3 (4.0-10.0)
[2018-03-31] MEDS ORDERED: CYCLOBENZAPRINE HCL 10 MG TABLET (FP) PO ONE (11:23)
[2018-03-31] MEDS ORDERED: ONDANSETRON *ODT* 4 MG TABLET SL PRN (11:24)
[2018-03-31 12:24] LABS: ALBUMIN 4.3 g/dl (3.4-5.0); ALK PHOS 88 U/L (45-117); ANION GAP 12 MMOL/L (8-16); BILIRUBIN,TOTAL 0.4 mg/dL (0.2-1); BLOOD UREA NITROGEN 9 mg/dL (7-18); CALCIUM 8.9 mg/dL (8.5-10.1); CHLORIDE 103 mmol/L (98-107); CO2 23 mmol/L (21-32); CREATININE 0.7 mg/dL (0.55-1.3); GLUCOSE,RANDOM 87 mg/dL (74-106); POTASSIUM 4.3 mmol/L (3.5-5.1); SGOT/AST 202 U/L (15-37); SGPT/ALT 200 U/L (13-61); SODIUM 138 mmol/L (136-145); TOT PROT 8.3 g/dl (6.4-8.2)
--- NOTE | 2018-03-31 16:51 | PN ---
S CIWA - CIWA Score Nausea/Vomitin Muscle Tremors: None Anxiety: 4-Mod. Anxious/Guarded Agitation: 1-Slight > Activity Paroxysmal Sweats: 3 Orientation: 0-Oriented Tacttile Disturbances: 2-Mild Itch/Numbness/Burn Auditory Disturbances: 0-None Visual Disturbances: 1-Very Mild Sensitivity Headache: 0-None Present CIWA-Ar Total Score: 14 BHS Progress Note (SOAP) Subjective: Nausea, Sweating, Body Aches, Anxious, Diarrhea. Objective: PATIENT A & O X 3, OBSERVED AMBULATING ON UNIT. IN NO ACUTE DISTRESS. 03/31/18 16:47 Vital Signs Temperature 97.4 F L 03/31/18 13:36 Pulse Rate 95 H 03/31/18 16:00 Respiratory Rate 18 03/31/18 16:00 Blood Pressure 132/86 03/31/18 13:36 O2 Sat by Pulse Oximetry (%) Laboratory Tests 03/30/18 03/30/18 03/31/18 12:25 14:00 06:00 WBC 4.7 RBC 4.77 Hgb 15.4 Hct 45.2 MCV 94.9 MCH 32.3 MCHC 34.1 RDW 14.5 Plt Count 205 D MPV 8.5 D Sodium Potassium Chloride Carbon Dioxide Anion Gap BUN Creatinine Creat Clearance w eGFR Random Glucose Calcium Total Bilirubin AST ALT Alkaline Phosphatase Total Protein Albumin Urine Color Yellow Urine Appearance Clear Urine pH 5.0 Ur Specific [place] 1.017 Urine Protein 2+ H Urine Glucose (UA) Negative Urine Ketones Negative Urine Blood Negative Urine Nitrite Negative Urine Bilirubin Negative Urine Urobilinogen Negative Ur Leukocyte Esterase Negative Urine WBC (Auto) <1 Urine RBC (Auto) <1 Ur Epithelial Cells Rare Hyaline Casts 8 Urine Mucus Rare RPR Titer HIV 1&2 Antibody Screen Negative HIV P24 Antigen Negative 03/31/18 03/31/18 06:00 06:00 WBC RBC Hgb Hct MCV MCH MCHC RDW Plt Count MPV Sodium 138 Potassium 4.3 Chloride 103 Carbon Dioxide 23 Anion Gap 12 BUN 9 Creatinine 0.7 Creat Clearance w eGFR > 60 Random Glucose 87 Calcium 8.9 Total Bilirubin 0.4 AST 202 H ALT 200 H Alkaline Phosphatase 88 Total Protein 8.3 H Albumin 4.3 Urine Color Urine Appearance Urine pH Ur Specific [place] Urine Protein Urine Glucose (UA) Urine Ketones Urine Blood Urine Nitrite Urine Bilirubin Urine Urobilinogen Ur Leukocyte Esterase Urine WBC (Auto) Urine RBC (Auto) Ur Epithelial Cells Hyaline Casts Urine Mucus RPR Titer Nonreactive HIV 1&2 Antibody Screen HIV P24 Antigen LABS NOTED. Assessment: 03/31/18 16:47 WITHDRAWAL SYMPTOMS. Plan: CONTINUE DETOX. CLONIDINE, 0.1 MG PO BID FOR WITHDRAWAL SYMPTOMS. FLEXERIL, 10 MG PO BID FOR BODY ACHES. ZOFRAN, 0.4 MG PO SL PRN FOR NAUSEA. PRN IMMODIUM PO FOR DIARRHEA. INCREASE DAILY PO FLUID INTAKE. REPEAT AST, ALT TOMORROW AM FOR ELEVATED ADMISSION LEVELS.
[2018-03-31] MEDS ORDERED: chlordiazePOXIDE HCL 25 MG CAPSULE PO SCH (17:00)
[2018-03-31 17:39] VITALS: BP 142/90; PULSE 102; TEMP 99.1
[2018-03-31] MEDS ORDERED: CYCLOBENZAPRINE HCL 10 MG TABLET (FP) PO SCH (18:00)
[2018-03-31] MEDS ORDERED: cloNIDine HCL 0.1 MG TABLET PO SCH (22:00)
[2018-04-01] MEDS ORDERED: chlordiazePOXIDE 5 MG CAPSULE PO SCH (17:00)
[2018-04-02] MEDS ORDERED: chlordiazePOXIDE HCL 10 MG CAPSULE PO SCH (17:00)
== END 2018-03-31 16:41 | disposition left against medical advice (07) | DRG 770 ==
LOC: YASAS 09:44 → Y3N 11:47
PROVIDERS: ADMIT Surgery; ATTEND Surgery
PROC: HZ2ZZZZ Detoxification Services for Substance Abuse Treatment (ICD-10-PCS; principal; 2018-03-30)
DX: F10.230 Alcohol dependence with withdrawal, uncomplicated (principal); F10.220 Alcohol dependence with intoxication, uncomplicated; F17.210 Nicotine dependence, cigarettes, uncomplicated; F19.24 Other psychoactive substance dependence with psychoactive substance-induced mood disorder; F19.282 Other psychoactive substance dependence with psychoactive substance-induced sleep disorder; F31.9 Bipolar disorder, unspecified; K21.9 Gastro-esophageal reflux disease without esophagitis; R00.0 Tachycardia, unspecified; E86.0 Dehydration; G47.00 Insomnia, unspecified; Z86.69 Personal history of other diseases of the nervous system and sense organs
CPT/HCPCS: 36415; 80053; 81003; 81015; 85027; 86593; 87389; 93005; 93010; J0735; Q0162